=== PATIENT | female | born 1950 | race Caucasian/White ===

== ENCOUNTER 2017-12-09 06:10 | Day surgery (SDC) | payer OTHER ==
[~2017-12-09 06:10] MED LIST: AVAPRO150 MG PO
[2017-12-09] MEDS ORDERED: ULTRACET PO (10:17)
[2017-12-09] MEDS ORDERED: RECTICARE30 GM TOP (10:17)
== END 2017-12-09 12:20 | disposition home or self-care (01) ==
LOC: CIR.AMB 06:10
DX: K62.82 Dysplasia of anus (principal)